=== PATIENT | female | born 1955 | race Caucasian/White ===

== ENCOUNTER → 2018-11-24 11:05 | Outpatient (CLI) | payer OTHER, SELFPAY ==
--- NOTE | 2018-11-24 | DI.MG.S_ITS ---
BILATERAL DIGITAL SCREENING MAMMOGRAM 3D/2D WITH CAD: 11/24/2018 CLINICAL: Routine screening. Comparison is made to exams dated: 02/26/2016 mammogram, 11/14/2014 mammogram, and 09/20/2013 mammogram - [facility]. There are scattered fibroglandular elements in both breasts. Current study was also evaluated with a Computer Aided Detection (CAD) system. No significant masses, calcifications, or other findings are seen in either breast. There has been no significant interval change. IMPRESSION: NEGATIVE There is no mammographic evidence of malignancy. A 1 year screening mammogram is recommended. This exam was interpreted at Station ID: [id number]. NOTE: For mammograms, a report in lay terms will be sent to the patient. Approximately 15% of breast malignancies will not be visualized mammographically. In the management of a palpable breast mass, a negative mammogram must not discourage biopsy of a clinically suspicious lesion. Electronically Signed By: Adair paz/ashlee:11/24/2018 13:28:37 letter sent: Normal Exam ACR BI-RADS Category 1: Negative 3341F
== END ==
PROVIDERS: PCP Internal Medicine; Visit Provider Internal Medicine
DX: Z12.31 Encounter for screening mammogram for malignant neoplasm of breast (principal)
CPT/HCPCS: 77063; 77067

== ENCOUNTER → 2021-07-13 12:20 | Outpatient (CLI) | payer MEDICARE, SELFPAY ==
--- NOTE | 2021-07-13 | DI.US.S_ITS ---
LIMITED ULTRASOUND OF RIGHT BREAST AND AXILLA: 07/13/2021 CLINICAL: Patient returns today to evaluate an asymmetry in the right breast. Comparison is made to exams dated: 07/13/2021 mammogram, 11/24/2018 mammogram, and 02/26/2016 mammogram - [facility]. Color flow ultrasound of the right breast 10 o'clock, and axilla regions was performed. Hein scale images of the real-time examination were reviewed. There is a benign 0.4 cm x 0.3 cm x 0.4 cm round cyst with a smooth internal wall in the right breast at 10 o'clock middle depth 8 cm from the nipple. This round cyst is hypoechoic with a well-defined boundary. This correlates with mammography findings. There are related rim calcifications. Color flow imaging demonstrates that there is no vascularity present. No significant abnormalities were seen sonographically in the right axilla. IMPRESSION: BENIGN There is no sonographic evidence of malignancy. The 0.4 cm x 0.3 cm x 0.4 cm round cyst in the right breast is consistent with an oil cyst and is benign. There is no abnormality seen in the right breast to correspond with the pain in the axilla, however, clinical followup is recommended. A 1 year screening mammogram is recommended. This exam was interpreted at Station ID: [id number]. Electronically Signed By: Newton quarles/ashlee:07/13/2021 14:07:03 letter sent: Clinical Evaluation Ultrasound BI-RADS: 2 Benign
--- NOTE | 2021-07-13 | DI.MG.S_ITS ---
BILATERAL DIGITAL DIAGNOSTIC MAMMOGRAM 3D/2D: 07/13/2021 CLINICAL: Breast pain. Comparison is made to exams dated: 11/24/2018 mammogram, 02/26/2016 mammogram, and 11/14/2014 mammogram - [facility]. There are scattered fibroglandular elements in both breasts. There is a new 0.4 cm oval fat containing mass with a circumscribed margin in the right breast at 10 o'clock middle depth. This correlates as an incidental finding. No other significant masses, calcifications, or other findings are seen in either breast. IMPRESSION: INCOMPLETE: NEEDS ADDITIONAL IMAGING EVALUATION The new 0.4 cm oval fat containing mass in the right breast resembles an oil cyst and is indeterminate. An ultrasound is recommended. There is no abnormality seen in the right breast to correspond with the pain in the axilla. Targeted ultrasound is recommended for further evaluation, which will be scheduled immediately following this exam. This exam was interpreted at Station ID: [id number]. NOTE: For mammograms, a report in lay terms will be sent to the patient. Approximately 15% of breast malignancies will not be visualized mammographically. In the management of a palpable breast mass, a negative mammogram must not discourage biopsy of a clinically suspicious lesion. Electronically Signed By: Newton quarles/ashlee:07/13/2021 14:04:33 ACR BI-RADS Category 0: Incomplete 3340F
== END ==
PROVIDERS: PCP Internal Medicine; Referring Provider Internal Medicine; Visit Provider Internal Medicine
DX: N64.4 Mastodynia (principal); R92.8 Other abnormal and inconclusive findings on diagnostic imaging of breast; N60.01 Solitary cyst of right breast
CPT/HCPCS: 76642; 77066; G0279

== ENCOUNTER → 2021-12-10 13:21 | Outpatient (CLI) | payer OTHER, SELFPAY ==
[2021-12-10 14:44] LABS: COVID19 -Nasal RAPID Negative (Negative)
== END ==
PROVIDERS: PCP Internal Medicine; Visit Provider Family Medicine Sleep Medicine
DX: Z20.822 Contact with and (suspected) exposure to COVID-19 (principal)
CPT/HCPCS: 87635; C9803

== ENCOUNTER 2021-12-11 08:01 | Day surgery (SDC) | payer OTHER, SELFPAY ==
[2021-12-11] MEDS: PROPARACAINE 0.5% OPHTH SOL 2 DROPS EYE-OP (09:21)
[2021-12-11] MEDS: CATARACT EYE COMPOUND (10 DROPS/SYRINGE) 3 DROPS EYE-OP (09:28)
[2021-12-11 09:29] VITALS: BP 126/81; PULSE 67; RESP 16; TEMP 37.3; O2SAT 99; BMI 22.8
--- NOTE | 2021-12-11 10:18 | P.OP.PRE_ITS ---
Pre-operative Note Interval Note History & Physical reviewed/Exam performed by Physician: Yes Changes to H&P: No Addendum Addendum Note: there are no non surgical alternatives for the patient's condition. Deterior ation of the patient's condition is expected. Delay in surgery may result in more complex future surgery.
--- NOTE | 2021-12-11 10:19 | PM.OP.1 ---
Operative Date/Time/Diagnoses Pre-op diagnosis: Nuclear cataract right eye Procedure & Clinicians Procedure: Cataract Surgery Same procedure as scheduled: Yes Surgeon: Ronald Bird Anesthesia Type: MAC +/- and Sedation Operative Notes Procedure in detail: Patient brought to the operating suite. Tetracaine drops placed in the right eye. Patient was prepped and draped in sterile manner. Wire lid speculum was placed in the eye. Betadine drops were placed on the eye. This was irrigated. Lidocaine jelly was placed on the eye. A paracentesis port was created with a side-port blade. 0.1 mL 1% preservative free lidocaine was injected into the anterior chamber. The anterior chamber was deepened with viscoelastic. 2.6 mm keratome was used to create a temporal clear corneal incision. Cystotome and Utrata forceps were used to create continuous tear capsulorrhexis. Balanced salt solution was used to hydro dissect the nucleus. The phacoemulsification handpiece was inserted and the nucleus was removed using the stop and chop technique. The irrigation aspiration handpiece was inserted and the remaining cortex was removed. Anterior chamber was deepened with viscoelastic. An Baumann DIB00 intraocular lens with a power of 14.5 was injected into the capsular bag. Irrigation aspiration handpiece was inserted and the remaining viscoelastic was removed. Incision was hydrated with balanced salt solution and found to be leak free with pressure with Weck-Judith sponges. 0.1 mL Vigamox injected anterior chamber. 0.3 mL Kenalog 10 mg was injected subconjunctivally. Lid speculum was removed. The patient left the operating room in excellent condition. Complications: none Post-operative Condition: stable Disposition: same day surgery
[2021-12-11] MEDS: HYALURONATE SODIUM 30 MG-10 MG/ML SYRINGES 1 BOX INTRAOCULA (10:33)
[2021-12-11] MEDS: MOXIFLOXACIN INJ 4 MG/0.8 ML VIAL 0.5 MG EYE-OP (10:34)
[2021-12-11] MEDS: TRIAMCINOLONE 50 MG/5 ML VIAL INJ (10:34)
[2021-12-11] MEDS: PHENYLEPHRINE/LIDOCAINE VIAL (OR) 0.2 ML EYE-OP (10:34)
[2021-12-11] MEDS: BALANCED SALT IRRIG SOLN NO.2 500 ML, EPINEPHrine 1 MG IRR (10:34)
[2021-12-11] MEDS: TETRACAINE 0.5% OPHTH DROPS 4 ML 2 DROPS EYE-OP (10:36)
[2021-12-11] MEDS: LIDOCAINE 2% (GLYDO) 6 ML GEL TOP (10:36)
[2021-12-11 10:51] VITALS: BP 123/83; PULSE 70; RESP 15; TEMP 36.5; O2SAT 100
[2021-12-11 10:56] VITALS: BP 120/69; PULSE 65; RESP 14; O2SAT 99
== END 2021-12-11 11:35 | disposition home or self-care (01) ==
PROVIDERS: PCP Internal Medicine; Referring Provider Ophthalmology; Visit Provider Ophthalmology
PROC: (CPT 66984; principal; 2021-12-11 10:15)
DX: H25.11 Age-related nuclear cataract, right eye (principal)
CPT/HCPCS: 66984; J0171; J2250; J3301

== ENCOUNTER → 2021-12-24 14:32 | Outpatient (CLI) | payer OTHER, SELFPAY ==
[2021-12-24 15:50] LABS: COVID19 -Nasal RAPID Negative (Negative)
== END ==
PROVIDERS: PCP Internal Medicine; Visit Provider Family Medicine Sleep Medicine
DX: Z20.822 Contact with and (suspected) exposure to COVID-19 (principal)
CPT/HCPCS: 87635; C9803

== ENCOUNTER 2021-12-25 09:11 | Day surgery (SDC) | payer OTHER, SELFPAY ==
[2021-12-25 10:23] VITALS: BP 118/73; PULSE 67; RESP 16; TEMP 36.5; O2SAT 100; BMI 24.2
[2021-12-25] MEDS: PROPARACAINE 0.5% OPHTH SOL 2 DROPS EYE-OP (10:38)
[2021-12-25] MEDS: CATARACT EYE COMPOUND (10 DROPS/SYRINGE) 3 DROPS EYE-OP (10:46)
== END 2021-12-25 09:15 | disposition home or self-care (01) ==
PROVIDERS: PCP Internal Medicine; Referring Provider Ophthalmology; Visit Provider Ophthalmology
DX: Z53.09 Procedure and treatment not carried out because of other contraindication (principal)
CPT/HCPCS: 66984

== ENCOUNTER → 2022-01-21 14:47 | Outpatient (CLI) | payer OTHER, SELFPAY ==
[2022-01-21 18:12] LABS: COVID19 -Nasal RAPID Negative (Negative)
== END ==
PROVIDERS: PCP Internal Medicine; Visit Provider Nurse Practitioner Family
DX: Z20.822 Contact with and (suspected) exposure to COVID-19 (principal)
CPT/HCPCS: 87635; C9803

== ENCOUNTER 2022-01-22 06:51 | Day surgery (SDC) | payer OTHER, SELFPAY ==
[2022-01-22] MEDS: PROPARACAINE 0.5% OPHTH SOL 2 DROPS EYE-OP (07:15)
[2022-01-22] MEDS: CATARACT EYE COMPOUND (10 DROPS/SYRINGE) 3 DROPS EYE-OP (07:15)
[2022-01-22 07:29] VITALS: BP 141/89; PULSE 68; RESP 18; TEMP 36.8; O2SAT 98; BMI 24.8
--- NOTE | 2022-01-22 08:35 | PM.PREOP ---
Pre-operative Note Interval Note History & Physical reviewed/Exam performed by Physician: Yes Changes to H&P: No
--- NOTE | 2022-01-22 08:35 | PM.OP.1 ---
Operative Date/Time/Diagnoses Pre-op diagnosis: Nuclear Cataract Left eye Post-op diagnosis: same Procedure & Clinicians Same procedure as scheduled: Yes Surgeon: Ronald Bird Anesthesia Type: MAC +/- and Sedation Operative Notes Procedure in detail: Patient brought to the operating suite. Tetracaine drops placed in the left eye. Patient was prepped and draped in sterile manner. Wire lid speculum was placed in the eye. Betadine drops were placed on the eye. This was irrigated. Lidocaine jelly was placed on the eye. A paracentesis port was created with a side-port blade. 0.1 mL 1% preservative free lidocaine was injected into the anterior chamber. The anterior chamber was deepened with viscoelastic. 2.6 mm keratome was used to create a temporal clear corneal incision. Cystotome and Utrata forceps were used to create continuous tear capsulorrhexis. Balanced salt solution was used to hydro dissect the nucleus. The phacoemulsification handpiece was inserted and the nucleus was removed using the stop and chop technique. The irrigation aspiration handpiece was inserted and the remaining cortex was removed. Anterior chamber was deepened with viscoelastic. An Baumann DIB00 intraocular lens with a power of 14.0 was injected into the capsular bag. Irrigation aspiration handpiece was inserted and the remaining viscoelastic was removed. Incision was hydrated with balanced salt solution and found to be leak free with pressure with Weck-Judith sponges. 0.1 mL Vigamox injected anterior chamber. 0.3 mL Kenalog 10 mg was injected subconjunctivally. Lid speculum was removed. The patient left the operating room in excellent condition. Complications: none Post-operative Condition: stable Disposition: same day surgery
--- NOTE | 2022-01-22 08:51 | SUR.OPER ---
Supine on eye stretcher, head on extension cradle secured with tape. Arms tucked at sides with blanket. Pillow under knees.
[2022-01-22] MEDS: MOXIFLOXACIN INJ 4 MG/0.8 ML VIAL 0.5 MG EYE-OP (08:56)
[2022-01-22] MEDS: HYALURONATE SODIUM 30 MG-10 MG/ML SYRINGES 1 BOX INTRAOCULA (08:56)
[2022-01-22] MEDS: PHENYLEPHRINE/LIDOCAINE VIAL (OR) 0.2 ML EYE-OP (08:56)
[2022-01-22] MEDS: TETRACAINE 0.5% OPHTH DROPS 4 ML 2 DROPS EYE-OP (08:57)
[2022-01-22] MEDS: BALANCED SALT IRRIG SOLN NO.2 500 ML, EPINEPHrine 1 MG IRR (08:57)
[2022-01-22] MEDS: TRIAMCINOLONE 50 MG/5 ML VIAL INJ (08:57)
[2022-01-22] MEDS: LIDOCAINE 2% (GLYDO) 6 ML GEL TOP (08:57)
[2022-01-22 09:14] VITALS: BP 130/67; PULSE 70; RESP 15; TEMP 36.2; O2SAT 98
--- NOTE | 2022-01-22 16:09 | SUR.PHASEII ---
Late entry: pt ride unavailable when called at 0940, arrived at 1010, pt escorted from unit in stable condition.
== END 2022-01-22 10:10 | disposition home or self-care (01) ==
PROVIDERS: PCP Internal Medicine; Referring Provider Ophthalmology; Visit Provider Ophthalmology
PROC: (CPT 66984; principal; 2022-01-22 08:45)
DX: H25.12 Age-related nuclear cataract, left eye (principal)
CPT/HCPCS: 66984; J0171; J2250; J3301

== ENCOUNTER → 2024-02-10 10:57 | Outpatient (CLI) | payer MEDICARE, SELFPAY ==
--- NOTE | 2024-02-10 10:58 | DI.MG.S_ITS ---
BILATERAL DIGITAL SCREENING MAMMOGRAM 3D/2D WITH CAD: 02/10/2024 CLINICAL: Routine screening. Comparison is made to exams dated: 07/13/2021 mammogram, 11/24/2018 mammogram, and 02/26/2016 mammogram - [facility]. There are scattered areas of fibroglandular density in both breasts (category b / 25%-50% glandular tissue). Current study was also evaluated with a Computer Aided Detection (CAD) system. No significant masses, calcifications, or other findings are seen in either breast. There has been no significant interval change. IMPRESSION: NEGATIVE There is no mammographic evidence of malignancy. A 1 year screening mammogram is recommended. Based on the Tyrer Cuzick model (a risk assessment model) the patient's lifetime risk is 4.9% and her 10 year risk is 3.1%. According to the ACR, ACS, and NCCN guidelines, an annual breast MRI exam along with mammogram is recommended if the patient's lifetime risk is 20% or greater. This exam was interpreted at Station ID: [id number]. NOTE: For mammograms, a report in lay terms will be sent to the patient. Approximately 15% of breast malignancies will not be visualized mammographically. In the management of a palpable breast mass, a negative mammogram must not discourage biopsy of a clinically suspicious lesion. Electronically Signed By: Robyn mclean/ashlee:02/10/2024 16:56:15 letter sent: Normal Exam ACR BI-RADS Category 1: Negative 3341F
== END ==
PROVIDERS: PCP Internal Medicine; Referring Provider Internal Medicine; Visit Provider Internal Medicine
DX: Z12.31 Encounter for screening mammogram for malignant neoplasm of breast (principal); R92.323 Mammographic fibroglandular density, bilateral breasts
CPT/HCPCS: 77063; 77067

== ENCOUNTER 2024-10-08 11:28 | Emergency (ER) | payer MEDICARE, SELFPAY ==
[2024-10-08 11:38] VITALS: BP 168/81; PULSE 91; RESP 16; TEMP 36.9; O2SAT 96; BMI 26.2
--- NOTE | 2024-10-08 11:40 | DI.CT.S_ITS ---
PROCEDURE: CT STROKE INDICATIONS: Positive BE-FAST, Stroke symptoms TECHNIQUE: Noncontrast 4.5 mm thick angled axial sections acquired from the foramen magnum to the vertex, with coronal reformats. For radiation dose reduction, the following was used: automated exposure control, adjustment of mA and/or kV according to patient size. COMPARISON: None. FINDINGS: Image quality: Incidental note is made of hyperostosis frontalis. This is not considered to be pathologic in a woman of this age. CSF spaces: Basal cisterns are patent. No extra-axial fluid collections. The ventricles are symmetric in size and shape. Brain: No intracranial bleeds or masses. There is cerebral volume loss for age, with resultant ventricular and sulcal prominence. There are periventricular and deep white matter chronic small vessel ischemic changes. There is intracranial internal carotid artery atherosclerosis. Skull and face: Calvarium and visualized facial bones appear intact, without suspicious lesions. Sinuses: Visualized sinuses and mastoids are clear. IMPRESSION: No acute intracranial pathology. No acute intracranial hemorrhage is seen. Note: Case discussed by telephone with Dr. Blount at 11:55 a.m. [place] time on October 08, 2024. This study fulfills neurological imaging criteria for inclusion or exclusion of acute stroke therapies based on available published neurological guidelines. Dictated by: Fernando Weiss M.D. on 10/08/2024 at 10:54 Approved by: Fernando Weiss M.D. on 10/08/2024 at 10:55
--- NOTE | 2024-10-08 11:40 | DI.CT.S_ITS ---
PROCEDURE: CT ANGIO HEAD AND NECK INDICATIONS: slurred speech and falls TECHNIQUE: After the administration of intravenous contrast, 1 mm thick sections acquired from the aortic arch through the [place]. 3-dimensional ifugsjr-gnduuthcp-opcvywwbcj (MIP) and/or volume rendering reformats were acquired of the central intracranial vasculature and neck separately. For radiation dose reduction, the following was used: automated exposure control, adjustment of mA and/or kV according to patient size. COMPARISON: [facility], CT, CT STROKE, 10/08/2024, 11:49. FINDINGS: Image quality: Diagnostic. BRAIN: Early dictated CT head report of 10/08/2024. HEAD CT ANGIOGRAPHY: Anterior circulation: Intracranial internal carotid arteries are normal in size and flow. The flow within the paired anterior cerebral arteries is normal and symmetric. The flow within the middle cerebral arteries is normal and symmetric. The anterior communicating artery is seen. No aneurysms are seen. Posterior circulation: Right vertebral artery dominance. Visualized portions of the vertebral arteries demonstrate normal caliber, and join to form a normal appearing basilar artery. Flow within the posterior cerebral arteries is normal and symmetric. No aneurysms are seen. NECK CT ANGIOGRAPHY: Carotid system: The great vessels demonstrate a conventional anatomy as they arise from the aortic arch. The origins of the common carotid arteries appear patent. The common carotid arteries demonstrate normal caliber and courses. The bifurcation regions are both widely patent. The internal carotid arteries demonstrate normal calibers and courses. Posterior circulation: The origins of the vertebral arteries both appear widely patent. The more superior extracranial portions of both vertebral arteries also demonstrate normal courses and calibers. They join to form a normal appearing basilar artery. Soft tissues: Visualized neck soft tissues demonstrate no suspicious abnormalities. Bones: No suspicious bony lesions. Visualized cervical spine appears normally aligned. IMPRESSION: No significant intracranial arterial abnormality is seen. No significant abnormality is seen within the arteries of the neck. Any quantitative measurements of stenosis were performed using NASCET criteria. Dictated by: Lliian Barahona M.D. on 10/08/2024 at 13:14 Approved by: Lilian Barahona M.D. on 10/08/2024 at 13:16
--- NOTE | 2024-10-08 11:40 | DI.RAD.S_ITS ---
PROCEDURE: XR CHEST 1V INDICATIONS: Possible stroke TECHNIQUE: One view of the chest was acquired. COMPARISON: None. FINDINGS: Surgical changes and devices: None. Lungs and pleura: Lungs are clear. No pleural effusions or pneumothorax. Mediastinum: Mediastinal contours appear normal. Heart size is normal. Bones and chest wall: No suspicious bony lesions. Overlying soft tissues appear unremarkable. IMPRESSION: No acute cardiopulmonary abnormality is seen. Dictated by: Kraig Sim M.D. on 10/08/2024 at 12:32 Approved by: Kraig Sim M.D. on 10/08/2024 at 12:32
[2024-10-08 11:48] LABS: Add Manual Diff / Slide Review NO; Basophils Absolute Auto 0 /uL (0-100); Basophils Percent Auto 0.3 % (0-2); Eosinophils Absolute Auto 100 /uL (0-450); Eosinophils Percent Auto 0.9 % (2-4); Hematocrit 39.9 % (36-46); Hemoglobin 13.2 g/dL (12.0-16.0); Lymphocytes Absolute Auto 1300 /uL (1100-4500); Lymphocytes Percent Auto 13.9 % (25-40); Mean Corpuscular Hemoglobin 29.4 PG (26-34); Mean Corpuscular Volume 89.2 fL (80-100); Monocytes Absolute Auto 700 /uL (0-900); Monocytes Percent Auto 7.5 % (3-14); Neutrophils Absolute Auto 7000 /uL (1500-7000); Neutrophils Percent Auto 77.4 % (50-75); Platelet Count 438 X10^3/uL (150-400); Red Blood Cell Count 4.48 X10^6/uL (4.0-5.2); White Blood Cell Count 9.1 X10^3/uL (4.5-11.0)
[2024-10-08 11:53] LABS: INR 0.9 (0.9-1.3); Prothrombin Time 10.7 SECONDS (9.4-12.5)
[2024-10-08 11:56] LABS: PTT Partial Thromboplastin Tim 34 SECONDS (25.1-36.5)
[2024-10-08 11:59] LABS: Alanine Aminotransferase 22 IU/L (<35); Albumin 4.6 g/dL (3.5-5.0); Albumin Globulin Ratio 1.6 (1.0-2.8); Alkaline Phosphatase 83 U/L (38-126); Aspartate Aminotransferase 33 IU/L (14-36); BUN Creatinine Ratio 18.3 (6-22); Bilirubin Total 0.3 mg/dL (0.2-1.3); Blood Urea Nitrogen 19 mg/dL (7-17); Calcium 10.2 mg/dL (8.4-10.2); Carbon Dioxide 26 mmol/L (22-32); Chloride 104 mmol/L (98-107); Creatine Kinase 64 U/L (30-135); Estimated Glomerular Filt Rate 57 mL/min (>60); Globulin 2.9 g/dL (1.7-4.1); Glucose 130 mg/dL (80-110); HEMOLYSIS < 15 (0-50); Potassium 4.1 mmol/L (3.4-5.1); Sodium 138 mmol/L (137-145); Total Protein 7.5 g/dL (6.3-8.2)
[2024-10-08 12:10] LABS: Troponin I < 0.012 ng/mL (0.01-0.034)
--- NOTE | 2024-10-08 12:50 | ED_ITS ---
HPI - Neuro Symptoms/Deficit General Chief Complaint: Neuro Symptoms/Deficit Stated Complaint: Fell , Slurred speech, Blurred vision Time Seen by Provider: 10/08/24 12:46 Source: patient, RN notes reviewed and old records reviewed Mode of arrival: Family Vehicle Limitations: no limitations History of Present Illness HPI Narrative: 69-year-old female who presents with complaint of confusion, feeling unsteady and off balance. Patient has had some mild memory issues but significantly worsened, has had several falls recently including 2 today. Her vlhohunj-ua-fqz at bedside who has been here the last several days has been helping to manage her medications the last several days before that patient was doing her own. She states she has been confused, forgetful kind of waxes and wanes in intensity. She is noticed patient's seemed unsteady sort of dragging her feet but has not had any lateralizing weakness. Patient does not appreciate any lateralizing weakness. No fevers reported, no headache, patient notes a little bit of vision change today. No chest pain or shortness of breath. No nausea or vomiting. Patient has had some urinary incontinence although she does not recall, her vhcycxic-bi-vwp has noted she has. Patient has not had any numbness tingling or weakness terms of lifting or moving her extremities but has had if difficulties with gait in general. No slurred or aphasic speech reported. Patient has been on Lamictal, lithium and was recently started on Depakote in the past several weeks. They have been titrating this to stop she was also started on metformin fairly recently for weight loss. No reported diabetes. Patient's note from Dr. Mendoza on 09/29/2024 notes feeling unsteady and off balance she was on bupropion which he had been discontinued lamotrigine 300 mg p.o. q.h.s., lithium 300 mg p.o. q.h.s. and quetiapine 50 mg p.o. q.h.s.. Was noted on 09/16 Depakote was initiated seemed to be helpful with her symptoms bipolar but was having difficulty balance and fussy and cognition on follow up on 09/29 concern for Depakote versus lithium. Appears they stopped her lithium decreased or quetiapine 25 mg. Yhxlnqmz-bo-jxt at bedside states that they were weaning down the Depakote but continuing the quetiapine. Unclear if patient has continued her lithium. On Anticoagulants: No Related Data Home Medications Medication Instructions Recorded Confirmed cholecalciferol (vitamin D3) 125 125 mcg PO DAILY 07/20/20 04/22/24 mcg (5,000 unit) capsule magnesium 250 mg tablet 500 mg PO DAILY 07/20/20 04/22/24 omega-3 fatty acids 1,000 mg 2,000 mg PO DAILY 07/20/20 04/22/24 capsule (Fish Oil Concentrate) ascorbic acid (vitamin C) 500 mg 500 mg PO DAILY 11/13/21 04/22/24 tablet biotin PO DAILY 12/03/22 04/22/24 Previous Rx's Medication Instructions Recorded bupropion HCl 150 mg 24 hr tablet, 300 mg (2 x 150 mg) PO QAM #60 tabs 04/22/24 extended release lamotrigine 200 mg tablet 300 mg (1.5 x 200 mg) PO DAILY 90 07/27/24 days #135 tabs quetiapine 25 mg tablet 50 mg (2 x 25 mg) PO BEDTIME #180 08/31/24 tabs Allergies Allergy/AdvReac Type Severity Reaction Status Date / Time Sulfa (Sulfonamide AdvReac Mild Verified 04/22/24 11:27 Antibiotics) Review of Systems Review of Systems ROS Unobtainable: All systems reviewed & are unremarkable except as noted in HPI and below Hematologic/Lymphatic On Anticoagulants: No Patient History Medical History Rheumatoid arthritis Social History household members: family and none Smoking Status: Former smoker alcohol intake: current Smoking Status: Former smoker alcohol intake frequency: a few times a week Exam Narrative Exam Narrative: GEN: well nourished, well appearing female, alert and oriented patient was pleasantly confused, clear speech, patient appears to be in mild distress. HEENT: Atraumatic, pupils are equal round reactive to light, extraocular movements are intact, nares are clear, TMs are clear with no fluid, there is no conjunctival pallor. Throat is clear without any exudates, erythema, tonsillar enlargement or uvular deviation, no facial droop HEART: Regular rate and rhythm without murmur, clicks, rubs. No carotid bruits, pulses are equal in upper and lower extremities LUNGS:Lungs clear to auscultation, no wheezes, rales, crackles, chest moves symmetrically ABD:bowel sounds normal, soft, non-tender, no guarding, rebound, rigidity, no masses noted, no hepatosplenomegaly :No CVA tenderness MSCL: Non-tender, no muscle atrophy, muscles strength 5/5 upper and lower extremities, full range of motion NEURO:CN 2-12 intact, sensation normal, reflexes 2/4 upper and lower extremities. finger nose finger test normal, heel velarde test normal. SKIN: No rash, no erythema or other skin changes. Initial Vital Signs Initial Vital Signs: Vital Signs Temperature 98.5 F 10/08/24 11:38 Pulse Rate 91 H 10/08/24 11:38 Respiratory Rate 16 10/08/24 11:38 Blood Pressure 168/81 H 10/08/24 11:38 Pulse Oximetry 96 10/08/24 11:38 Oxygen Delivery Method Room Air 10/08/24 11:38 Course Orders Ordered: Discontinued Medications Ondansetron HCl (Ondansetron 4 Mg/2 Ml Inj) 4 mg IV NOW PRN PRN Reason: Nausea And Vomiting Ondansetron HCl (Ondansetron 4 Mg Odt) 4 mg SL NOW PRN PRN Reason: Nausea And Vomiting Vital Signs Vital signs: Vital Signs - 8 hr 10/08/24 11:38 Temperature 98.5 F Pulse Rate 91 H Respiratory Rate 16 Blood Pressure 168/81 H Pulse Oximetry 96 Oxygen Delivery Method Room Air MDM - Neuro Symptoms/Deficit Lab Data 10/08/24 11:39 10/08/24 11:39 Labs: Lab Results 10/08/24 10/08/24 10/08/24 Range/Units 11:39 13:18 13:35 WBC 9.1 (4.5-11.0) X10^3/uL RBC 4.48 (4.0-5.2) X10^6/uL Hgb 13.2 (12.0-16.0) g/dL Hct 39.9 (36-46) % MCV 89.2 (80-100) fL MCH 29.4 (26-34) PG MCHC 33.0 (30-36) % RDW 14.0 (11.6-14.8) % Plt Count 438 H (150-400) X10^3/uL Neut % (Auto) 77.4 H (50-75) % Lymph % (Auto) 13.9 L (25-40) % Irwin % (Auto) 7.5 (3-14) % Eos % (Auto) 0.9 L (2-4) % Baso % (Auto) 0.3 (0-2) % Neut # (Auto) 7000 (6503-2092) /uL Lymph # (Auto) 1300 (3691-5833) /uL Irwin # (Auto) 700 (0-900) /uL Eos # (Auto) 100 (0-450) /uL Baso # (Auto) 0 (0-100) /uL PT 10.7 (9.4-12.5) SECONDS INR 0.9 (0.9-1.3) APTT 34 (25.1-36.5) SECONDS Sodium 138 (137-145) mmol/L Potassium 4.1 (3.4-5.1) mmol/L Chloride 104 (98-107) mmol/L Carbon Dioxide 26 (22-32) mmol/L BUN 19 H (7-17) mg/dL Creatinine 1.04 (0.52-1.04) mg/dL Estimated GFR 57 L (>60) mL/min BUN/Creatinine Ratio 18.3 (6-22) Glucose 130 H (80-110) mg/dL Calcium 10.2 (8.4-10.2) mg/dL Magnesium 2.0 (1.6-2.3) mg/dL Total Bilirubin 0.3 (0.2-1.3) mg/dL AST 33 (14-36) IU/L ALT 22 (<35) IU/L Alkaline Phosphatase 83 (38-126) U/L Ammonia < 9 L (9-30) umol/L Total Creatine Kinase 64 (30-135) U/L Troponin I < 0.012 (0.01-0.034) ng/mL Total Protein 7.5 (6.3-8.2) g/dL Albumin 4.6 (3.5-5.0) g/dL Globulin 2.9 (1.7-4.1) g/dL Albumin/Globulin Ratio 1.6 (1.0-2.8) TSH 1.06 (0.47-4.68) uIU/mL Urine RBC None seen (0-5/HPF) Urine WBC None seen (0-5/HPF) Ur Squamous Epith Cells None seen (0-5/HPF) Urine Bacteria Occasional (0-1) (None) Ur Culture Indicated? Cult not indicated Vol Urine Centrifuged 10ml (spun) Salicylates < 1.0 (<20) mg/dL U Opiates 300ng/mL cut Negative (Negative) Ur Oxycodone Screen Negative (Negative) Urine Methadone Screen Negative (Negative) Acetaminophen < 10 (10-30) ug/mL Ur Barbiturates Screen Negative (Negative) U Tricyclic Antidepress Negative (Negative) Ur Phencyclidine Scrn Negative (Negative) Ur Amphetamines Screen Negative (Negative) U Methamphetamines Scrn Negative (Negative) Ur MDMA Scrn (Ecstasy) Negative (Negative) U Benzodiazepines Scrn Negative (Negative) [place] < 0.2 L (0.6-1.2) mmol/L Urine Cocaine Screen Negative (Negative) U Marijuana (THC) Screen Negative (Negative) Urine pH Normal (Normal) Urine Specific [place] Normal (Normal) Ethyl Alcohol < 10 ( - 10) mg/dL Ur Creatinine Normal (Normal) Point of Care Testing Glucose POC 119 Urine Dip Bedside Urine Glucose Negative Bedside Urine Bilirubin - Negative Bedside Urine Ketone - Negative Urine Specific [place] 1.005 Bedside Urine Occult Blood +/- Bedside Urine pH 6.5 Bedside Urine Protein - Negative Bedside Urine Urobilinogen - Negative Bedside Urine Nitrite - Negative Bedside Urine Leukocytes - Negative Esterase Imaging Data CT scan - head: Radiologist's Impression: Sobia Horta??69??F??1955 ? Allergy/Adv: Sulfa (Sulfonamide Antibiotics) (More??) Close Head/Neck CTA 10/08/24 Chest X-Ray (Signed) Kraig Sim - 10/08/[address] (Signed) Fernando Weiss - 10/08/24 Mammogram Screening (Signed) Robyn Moe - 02/10/24 Mammogram Diagnostic (Signed) Newton Landon - 07/13/21 Breast Ultrasound (Signed) Newton Landon - 07/13/21 Mammogram Screening (Signed) Adair Copeland - 11/24/[address] [address] [address] Scan Report Signed Patient: Sobia Horta MR#: [id number] : 1955 Acct:[id number] Age/Sex: 69 / F Date of Service: 10/08/24 Loc: ED Accession Number: [id number] Procedure: CT Stroke Ordering Provider: Carole Blount D.O. PROCEDURE: CT STROKE INDICATIONS: Positive BE-FAST, Stroke symptoms TECHNIQUE: Noncontrast 4.5 mm thick angled axial sections acquired from the foramen magnum to the vertex, with coronal reformats. For radiation dose reduction, the following was used: automated exposure control, adjustment of mA and/or kV according to patient size. COMPARISON: None. FINDINGS: Image quality: Incidental note is made of hyperostosis frontalis. This is not considered to be pathologic in a woman of this age. CSF spaces: Basal cisterns are patent. No extra-axial fluid collections. The ventricles are symmetric in size and shape. Brain: No intracranial bleeds or masses. There is cerebral volume loss for age, with resultant ventricular and sulcal prominence. There are periventricular and deep white matter chronic small vessel ischemic changes. There is intracranial internal carotid artery atherosclerosis. Skull and face: Calvarium and visualized facial bones appear intact, without suspicious lesions. Sinuses: Visualized sinuses and mastoids are clear. IMPRESSION: No acute intracranial pathology. No acute intracranial hemorrhage is seen. Note: Case discussed by telephone with Dr. Blount at 11:55 a.m. Kay time on October 08, 2024. This study fulfills neurological imaging criteria for inclusion or exclusion of acute stroke therapies based on available published neurological guidelines. Dictated by: Fernando Weiss M.D. on 10/08/2024 at 10:54 Approved by: Fernando Weiss M.D. on 10/08/2024 at 10:55 Chest x-ray: Radiologist's Impression: Close Head/Neck CTA 10/08/24 Chest X-Ray (Signed) Kraig Sim - 10/08/[address] (Signed) Fernando Weiss - 10/08/24 Mammogram Screening (Signed) Robyn Moe - 02/10/24 Mammogram Diagnostic (Signed) Newton Landon - 07/13/21 Breast Ultrasound (Signed) Newton Landon - 09/10/21 Mammogram Screening (Signed) Adair Copeland - 11/24/18 Launch?[address] [address] XRay Report Signed Patient: Sobia Horta MR#: [id number] : 1955 Acct:[id number] Age/Sex: 69 / F Date of Service: 10/08/24 Loc: ED Accession Number: [id number] Procedure: XR chest 1V Ordering Provider: Carole Blount D.O. PROCEDURE: XR CHEST 1V INDICATIONS: Possible stroke TECHNIQUE: One view of the chest was acquired. COMPARISON: None. FINDINGS: Surgical changes and devices: None. Lungs and pleura: Lungs are clear. No pleural effusions or pneumothorax. Mediastinum: Mediastinal contours appear normal. Heart size is normal. Bones and chest wall: No suspicious bony lesions. Overlying soft tissues appear unremarkable. IMPRESSION: No acute cardiopulmonary abnormality is seen. Dictated by: Kraig Sim M.D. on 10/08/2024 at 12:32 Approved by: Kraig Sim M.D. on 10/08/2024 at 12:32 ECG Data Attestation: I personally reviewed and interpreted this ECG as follows: Prior ECG tracings: available for review Interpretation: Sinus rhythm rate 85, [place] 162 QRS is 78 QTC of 423. No prior for comparison. MDM Narrative Medical decision making narrative: 69-year-old female complains of slurred speech gait abnormalities and balance issues ongoing for a week but worsening today with a 2 falls this morning at 8 and 9:00 a.m. patient was ambulating for the 1st time, sort of fell over in her seat the 2nd. No anticoagulants does take bipolar medication has been compliant of the been changes made. On exam NIH is 0. Patient has had some recent adjustments to do her psychiatric medications which may have some component to her symptoms. Point of care glucose is [address]-negative for acute change, results called to myself by radiology Head and neck CTA shows no significant changes to the intracranial arteries or within the arteries of the neck. Chest x-ray shows no acute change EKG shows rate 80 Labs normal white count hemoglobin of 13 platelets are 438 no priors for comparison predominance of neutrophils, coags are negative, chemistries shows BUN 19 creatinine 1.04 no priors for comparison otherwise normal electrolytes glucose of 130 calcium 10.2 LFTs are negative troponins less than 0.012. TSH is 1.06 Ammonia is less than 9. ETOH is negative, lithium is less than 0.2, lamotrigine total valproic acid are pending. Acetaminophen is less than 10. Salicylates less than 1. UDS is negative UA, point of care urine is negative, microscopy red cells no white cells no squamous 1 bacteria. Urine culture was ordered and is pending. Patient ambulated here in the department. Reviewed findings with patient and family they feel comfortable returning home. She does have a walker at home although she did not really required ambulating. Dr. Mendoza was not available but spoke with the on-call nurse lithium has been stopped, Seroquel has been decreased but they were told to stop that today, she has 1 additional dose of Depakote so we will hold that dose today. She was to continue lamotrigine which she has been on for some time, metformin was also being stopped as well. They also note that there was some discussion about if patient has some overall cognitive decline that is maybe complicating her history. Patient is a bit more alert conversant throughout the day. She seems a little bit less confused here in the department after some more time here. She has her fbcvniiw-vw-ggg at bedside who is here for some time feels comfortable returning home with her at this time. We will have AUTOMOBILE SEAT COVER INSTALLER meet with them to see if home health care or any other resources that might be helpful discussed strict return precautions patient is having any other new or concerning changes. Discussed findings with the patient and family, no clear infectious, neurologic, metabolic, vascular other sources or found for symptoms currently. I suspect the titration up of medications and then decreases likely causing some patient's symptoms there is some baseline cognitive decline and there was discussion about neurocognitive assessment such as with a neuropsych prior to today. Patient has been on lamotrigine long-term so we will have her continue this but stop her other new medications and they did decrease her Seroquel and we will hold this today as well. Discussed return precautions. All questions answered. Stroke Core Measures Exclusion Criteria TPA in CVA: Symptom Onset >3 or 4.5 Hours Discharge Plan Departure Patient Disposition: Home Clinical Impression: Altered mental status, Fall Instructions: DI for Altered Mental Status Activity Restrictions/Additional Instructions: Follow up with Dr. Mendoza for recheck. Have not found any other clear source of your changes most recently, I suspect some of your changes are from all of your recent medication changes but feel free to return if you are having new or worsening symptoms. There is a urine culture pending, if this shows changes consistent with infection you would be contacted to start an antibiotic. It typically results in 48-72 hours. Continue your lamotrigine as prescribed. You should continue to hold or stop your lithium, Depakote, quetiapine and metformin. Please return for fevers, increasing changes to mentation, decreased activity, chest pain, shortness of breath, persistent vomiting, new difficulties with speech, movement, weakness of the arms or legs, facial droop or other new or concerning changes. Prescriptions: No Action magnesium 250 mg tablet 500 mg PO DAILY cholecalciferol (vitamin D3) 125 mcg (5,000 unit) capsule 125 mcg PO DAILY omega-3 fatty acids [Fish Oil Concentrate] 1,000 mg capsule 2,000 mg PO DAILY ascorbic acid (vitamin C) 500 mg tablet 500 mg PO DAILY biotin PO DAILY bupropion HCl 150 mg tablet extended release 24 hr 300 mg PO QAM Qty: 60 2RF lamotrigine 200 mg tablet 300 mg PO DAILY 90 Days Qty: 135 3RF quetiapine 25 mg tablet 50 mg PO BEDTIME Qty: 180 3RF Hold Instructions: Hold for ER work up Referrals: Verónica Will MD [Primary Care Provider] - Kraig Mendoza MD [Physician] - Stand Alone Forms: Patient Portal/API/Survey
--- NOTE | 2024-10-08 13:05 | EKG_ITS ---
[id number] [address] Test Date: 2024-10-08 Pat Name: Sobia Horta Department: [facility] Room: Gender: Female Supervisor Wrapping Room: SHELLY : 1955 Requested By: Order Number: [id number] Reading MD: Raj Mckeon MD Measurements Intervals [place] Rate: 85 P: 17 MD: 162 QRS: 0 QRSD: 78 T: -25 QT: 356 QTc: 423 Interpretive Statements Normal sinus rhythm Possible Inferior infarct , age undetermined Anterior infarct , age undetermined Electronically Signed On 10-10-2024 17:05:24 PST by Raj Mckeon MD
[2024-10-08 13:21] VITALS: BP 152/80; PULSE 86; O2SAT 96
[2024-10-08 13:35] VITALS: PULSE 92; O2SAT 96
[2024-10-08 13:40] LABS: Ammonia (NH3) < 9 umol/L (9-30)
[2024-10-08 13:51] LABS: Acetaminophen < 10 ug/mL (10-30); Ethanol (ETOH) < 10 mg/dL; Salicylate < 1.0 mg/dL (<20)
[2024-10-08 14:00] VITALS: BP 154/67; PULSE 85; O2SAT 97
[2024-10-08 14:02] LABS: Ur Creatinine Normal (Normal); Ur Specific Gravity Normal (Normal); Urine pH Normal (Normal)
[2024-10-08 14:03] LABS: Urine Amphetamines Negative (Negative); Urine Barbiturates Negative (Negative); Urine Benzodiazepines Negative (Negative); Urine Cocaine Negative (Negative); Urine MDMA Negative (Negative); Urine Methadone Negative (Negative); Urine Methamphetamines Negative (Negative); Urine Opiates Negative (Negative); Urine Oxycodone Negative (Negative); Urine Phencyclidine Negative (Negative); Urine THC Negative (Negative); Urine Tricyclic Antidepressant Negative (Negative)
[2024-10-08 14:04] LABS: Lithium < 0.2 mmol/L (0.6-1.2)
[2024-10-08 14:21] LABS: TSH w/ Reflex to FT4 1.06 uIU/mL (0.47-4.68)
[2024-10-08 14:30] VITALS: BP 160/71; PULSE 81; O2SAT 97
[2024-10-08 15:13] LABS: Bacteria Urine Occasional (0-1); Culture Indicated Urine Cult Not Indicated; RBC Urine None Seen (0-5/HPF); Squamous Epithelial Cell Urine None Seen (0-5/HPF); Urine Volume 10mL (spun); WBC Urine None Seen (0-5/HPF)
[2024-10-08 16:40] VITALS: BP 144/64; PULSE 72; RESP 18; TEMP 36.8; O2SAT 99
--- NOTE | 2024-10-08 17:43 | CM.SWNOTE ---
ED CAREER TECHNICAL COUNSELOR Note Patient is 69 y/o female who presents to the ED due to concern for AMS, confusion, unsteady gait GLF and concern for memory. Patient has new PCP that she has upcoming appt with in [facility] [facility], patient has [facility] insurance. Patient sees Psychiatrist Dr. Mendoza regularly as well. Patient has hx of IGOR, PTSD, Bipolar 2 Disorder, Rheumatoid arthritis and recent GLFs. CAREER TECHNICAL COUNSELOR enters room to meet with patient, patient presents as A/Ox4 with flat affect. Present in room is patient's sister in law and daughter in law. Patient resides alone in [place]. It is reported that patient's daughter in law is visiting from [place] and can extend her stay if needed. It is reported that patient is independent with ADLs at baseline. It is reported that patient is in a recent depressive state she has not been cooking as much, eating as much or leaving her house. Patient drives at baseline but she has not been driving and asking family members for rides. The family endorses concern that patient has been making rash decisions such as selling things without thinking of the consequences and there were concerns that patient may sell her house. The family reports that they are working with an workers compensation attorney to put patient's house in a trust. ED provider reviews patient with Psychiatrist Dr. Mendoza and it is reported that patient presented with unsteady gait at last appt a week ago. There is concern that patient's recent medication changes are impacting patient's mental status. Patient has upcoming psychiatry appt in November. It is reported that patient's DANISHA resides in [place] and patient endorses friends as supports. Patient's DIL provides name and [phone] ED provider requests CAREER TECHNICAL COUNSELOR consult to discuss appropriateness for additional in home care and recommends referral for home health. CAREER TECHNICAL COUNSELOR discusses HH and they deny preference, due to patient's current PCP status CAREER TECHNICAL COUNSELOR submits referral for [facility] for HACH program. CAREER TECHNICAL COUNSELOR submits referral for PT, OT, RN, and CAREER TECHNICAL COUNSELOR. CAREER TECHNICAL COUNSELOR provides family with senior resource guide and brochure for [facility]. CAREER TECHNICAL COUNSELOR calls Perlita at [facility] and leaves , CAREER TECHNICAL COUNSELOR faxes F2F, order and clinicals for review. Perlita confirms fax is received and sent to insurance for review. Plan: patient to d/c to home upon medical clearance, [facility] referral in place reviewing patient, family to continue to support patient, patient to f/u with PCP and Psychiatrist. Amy Patel, BIODIESEL ENGINEERING MANAGER
[2024-10-10 08:07] LABS: Valproic Acid (Depakene) Total 37 ug/mL (50-100)
== END 2024-10-08 16:41 | disposition home or self-care (01) ==
PROVIDERS: Emergency Provider Emergency Medicine; PCP Internal Medicine
DX: R41.82 Altered mental status, unspecified (principal); H53.8 Other visual disturbances; R29.6 Repeated falls; R47.81 Slurred speech; R03.0 Elevated blood-pressure reading, without diagnosis of hypertension
CPT/HCPCS: 36415; 70450; 70496; 70498; 71045; 80053; 80164; 80175; 80178; 80305; 80320; 80329; 81003; 81015; 82140; 82550; 82962; 83735; 84443; 84484; 85025; 85610; 85730; 87086; 93005; 93010; 99284; G0480; Q9967

== ENCOUNTER → 2025-02-03 09:05 | Outpatient (CLI) | payer MEDICARE, SELFPAY ==
[2025-02-03 09:56] LABS: Add Manual Diff / Slide Review NO; Basophils Absolute Auto 0 /uL (0-100); Basophils Percent Auto 0.4 % (0-2); Eosinophils Absolute Auto 200 /uL (0-450); Eosinophils Percent Auto 1.5 % (2-4); Hematocrit 38.1 % (36-46); Hemoglobin 12.8 g/dL (12.0-16.0); Lymphocytes Absolute Auto 1200 /uL (1100-4500); Lymphocytes Percent Auto 12.8 % (25-40); Mean Corpuscular HGB Conc 33.6 % (30-36); Mean Corpuscular Hemoglobin 29.8 PG (26-34); Mean Corpuscular Volume 88.7 fL (80-100); Monocytes Absolute Auto 700 /uL (0-900); Monocytes Percent Auto 6.9 % (3-14); Neutrophils Absolute Auto 7600 /uL (1500-7000); Neutrophils Percent Auto 78.4 % (50-75); Platelet Count 445 X10^3/uL (150-400); Red Cell Distribution Width 13.8 % (11.6-14.8); White Blood Cell Count 9.7 X10^3/uL (4.5-11.0)
[2025-02-03 10:34] LABS: Lithium 0.8 mmol/L (0.6-1.2)
[2025-02-03 10:36] LABS: Alanine Aminotransferase 13 IU/L (<35); Albumin 4.6 g/dL (3.5-5.0); Albumin Globulin Ratio 1.7 (1.0-2.8); Alkaline Phosphatase 89 U/L (38-126); Aspartate Aminotransferase 22 IU/L (14-36); BUN Creatinine Ratio 23.5 (6-22); Bilirubin Total 0.3 mg/dL (0.2-1.3); Blood Urea Nitrogen 24 mg/dL (7-17); Calcium 10.4 mg/dL (8.4-10.2); Carbon Dioxide 24 mmol/L (22-32); Chloride 101 mmol/L (98-107); Estimated Glomerular Filt Rate 59 mL/min (>60); Globulin 2.7 g/dL (1.7-4.1); Glucose 105 mg/dL (80-110); HEMOLYSIS < 15 (0-50); Potassium 4.2 mmol/L (3.4-5.1); Sodium 135 mmol/L (137-145); Total Protein 7.3 g/dL (6.3-8.2)
[2025-02-03 11:04] LABS: TSH w/ Reflex to FT4 1.74 uIU/mL (0.47-4.68)
== END ==
PROVIDERS: PCP Nurse Practitioner; Referring Provider Psychiatry & Neurology Psychiatry; Visit Provider Psychiatry & Neurology Psychiatry
DX: F31.81 Bipolar II disorder (principal); F43.12 Post-traumatic stress disorder, chronic; Z79.899 Other long term (current) drug therapy
CPT/HCPCS: 36415; 80053; 80175; 80178; 84443; 85025; 99214

== ENCOUNTER → 2025-04-11 15:39 | Outpatient (CLI) | payer MEDICARE, SELFPAY | LOC: LAB 15:40 | PROVIDERS: Family Provider Nurse Practitioner; Referring Provider Psychiatry & Neurology Psychiatry; Visit Provider Psychiatry & Neurology Psychiatry | DX: F31.81 Bipolar II disorder (principal); Z79.899 Other long term (current) drug therapy | CPT/HCPCS: 36415; 99214 ==